=== PATIENT | female | born 1990 | race Caucasian/White ===

== ENCOUNTER 2016-12-15 09:33 | Emergency (ER) | payer BC ==
[~2016-12-15] VITALS: Ht 177.8 cm; Wt 94.4 kg
[~2016-12-15 09:33] MED LIST: CLEOCIN300 MG PO; EFFEXOR25 MG PO; NAPROSYN500 MG PO; NORCO 5/3251 TABLET PO; PERIDEX1 ML MM; TOPAMAX25 MG PO; TRILEPTAL150 MG PO
[2016-12-15] MEDS ORDERED: RISPERIDONE0.5 MG PO (09:59)
[2016-12-15] MEDS ORDERED: ATARAX,VISTARIL25 MG PO (10:01)
[2016-12-15] MEDS ORDERED: VENLAFAXINE HCL75 MG PO (10:15)
[2016-12-15 10:36] VITALS: BP 130/78
== END 2016-12-15 10:38 | disposition home or self-care (01) ==
LOC: EME 09:33
DX: F41.1 Generalized anxiety disorder (principal); F17.200 Nicotine dependence, unspecified, uncomplicated; Z88.1 Allergy status to other antibiotic agents; Z88.0 Allergy status to penicillin
CPT/HCPCS: 99281; 99284

== ENCOUNTER 2017-02-02 11:05 | Emergency (ER) | payer BC ==
[~2017-02-02] VITALS: Ht 175.3 cm; Wt 96.9 kg
[~2017-02-02 11:05] MED LIST changes: +ATARAX,VISTARIL25 MG PO; +RISPERIDONE0.5 MG PO; +VENLAFAXINE HCL75 MG PO
[2017-02-02 11:24] VITALS: BP 128/69
== END 2017-02-02 12:29 | disposition left against medical advice (07) ==
LOC: EME 11:05
DX: F19.230 Other psychoactive substance dependence with withdrawal, uncomplicated (principal); Z53.21 Procedure and treatment not carried out due to patient leaving prior to being seen by health care provider

== ENCOUNTER 2017-06-30 16:56 | Emergency (ER) | payer SELFPAY ==
[~2017-06-30] VITALS: Ht 175.3 cm; Wt 92.9 kg
[2017-06-30] MEDS ORDERED: MOTRIN600 MG PO (19:14)
[2017-06-30] MEDS ORDERED: REGLAN10 MG PO (19:14)
[2017-06-30 19:30] VITALS: BP 118/86
== END 2017-06-30 19:31 | disposition home or self-care (01) ==
LOC: EME 16:56
DX: S09.90XA Unspecified injury of head, initial encounter (principal); F07.81 Postconcussional syndrome; W22.8XXA Striking against or struck by other objects, initial encounter
CPT/HCPCS: 99281; 99283

== ENCOUNTER 2018-02-13 22:31 | Emergency (ER) | payer SELFPAY ==
[~2018-02-13] VITALS: Ht 175.3 cm; Wt 88.4 kg
[~2018-02-13 22:31] MED LIST changes: +MOTRIN600 MG PO; +REGLAN10 MG PO
[2018-02-13 22:38] VITALS: BP 131/98
[2018-02-13] MEDS ORDERED: CLEOCIN300 MG PO (23:12)
[2018-02-13] MEDS ORDERED: DIFLUCAN150 MG PO (23:30)
== END 2018-02-14 00:03 | disposition home or self-care (01) ==
LOC: EME 22:31
DX: J03.90 Acute tonsillitis, unspecified (principal); F31.9 Bipolar disorder, unspecified; F32.9 Major depressive disorder, single episode, unspecified; F43.10 Post-traumatic stress disorder, unspecified; F17.200 Nicotine dependence, unspecified, uncomplicated; Z88.0 Allergy status to penicillin; Z88.1 Allergy status to other antibiotic agents
CPT/HCPCS: 99281; 99284; J1100